=== PATIENT | female | born 2000 | race Caucasian/White ===

== ENCOUNTER 2021-10-07 20:45 | Emergency (ER) | payer BC ==
[~2021-10-07] VITALS: Ht 162.6 cm; Wt 149.7 kg
[2021-10-07] MEDS ORDERED: ACETAMINOPHEN 325 MG TAB PO ONE (21:25)
== END 2021-10-07 22:19 | disposition home or self-care (01) ==
LOC: ER 21:17
DX: R50.9 Fever, unspecified (principal); J03.90 Acute tonsillitis, unspecified; Z20.822 Contact with and (suspected) exposure to COVID-19
CPT/HCPCS: 83518; 87070; 99283; U0002